=== PATIENT | female | born 1960 | race Caucasian/White ===

== ENCOUNTER 2017-02-18 18:20 | Emergency (ER) | payer MEDICARE ==
[~2017-02-18] VITALS: Ht 157.5 cm; Wt 80.5 kg
[~2017-02-18 18:20] MED LIST: ACET-1890 PO; BUPR-97 PO; CALC1TAB2 PO; ERGO400C PO; FLUT16SP2 NS; HYDR25TA4 PO; OMPR20CCR PO; OXYB10TA6 PO; SIMV40TA5 PO
[2017-02-18 18:28] VITALS: BP 149/73; PULSE 85; RESP 16; O2SAT 100
--- NOTE | 2017-02-18 19:25 | DRSVH ---
PROCEDURE: X-RAY RIGHT WRIST COMPLETE, MINIMUM THREE VIEWS ([id number]) INDICATIONS: Fall TECHNIQUE: 3 views of the wrist were acquired. COMPARISON: None. FINDINGS: Bones: There is a comminuted fracture of the distal radius. Fracture lucencies extend to the radioc arpal joint. Displaced fracture of the ulnar styloid process is noted. Scaphoid view: Unable to be performed due to a splint on the patient's arm at time of image acquisit ion. Soft tissues: No suspicious soft tissue calcifications. IMPRESSION: 1. Comminuted, intra-articular, distal radial fracture. 2. Ulnar styloid process fracture. Dictated by: Viktoriya Nazario MD, PhD on 02/18/2017 at 19:22 Approved by: Viktoriya Nazario MD, PhD on 02/18/2017 at 19:24
--- NOTE | 2017-02-18 21:14 | DRSVH ---
PROCEDURE: CT FACE WITHOUT CONTRAST ([id number]) INDICATIONS: fall, facial trauma TECHNIQUE: Noncontrast 1.5 mm thick axial images acquired from the mandible through the frontal sinuses, with co enoch and sagittal reformatting. For radiation dose reduction, the following was used: automated ex posure control. COMPARISON: None. FINDINGS: Image quality: Excellent. Bones and teeth: There is a displaced fracture of the right lateral orbit wall. Nondisplaced fractu re of the right zygomatic arch is noted. Sinus lombardo show no fracture or deformity. Nasal bones and septum are intact. Visualized portions of the mandible demonstrate no fractures or subluxation. Pt erygoid plates are intact. Visualized portions of the skull base and auditory canals are intact. Sinuses: Mild mucosal thickening noted in the maxillary sinuses, the right sphenoid sinus in the lef t frontal sinus. Mastoid air cells are aerated. Soft tissues: Right periorbital soft tissues show swelling noted. No enlarged lymph nodes. No soft tissue lacerations or debris. Vascular: Visualized vascular structures appear normal in the absence of contrast. Bony vascular fo ramina and canals are intact. IMPRESSION: 1. Displaced right lateral orbital wall fracture. 2. Displaced bone fragment associated with right lateral orbit wall fracture impinges on the right l ateral rectus muscle. Please correlate with clinical findings to exclude muscle entrapment. 3. Nondisplaced right zygomatic arch fracture. Dictated by: Viktoriya Nazario MD, PhD on 02/18/2017 at 21:04 Approved by: Viktoriya Nazario MD, PhD on 02/18/2017 at 21:12
--- NOTE | 2017-02-18 21:18 | DRSVH ---
PROCEDURE: CT BRAIN WITHOUT CONTRAST ([id number]) INDICATIONS: fall, facial trauma TECHNIQUE: Noncontrast 4.5 mm thick angled axial sections acquired from the foramen magnum to the vertex, with c oronal reformats. COMPARISON: [facility], MR, IAC'S W&W/O CONTRAST, 01/17/2013, 8:24. FINDINGS: Image quality: Excellent. CSF spaces: Basal cisterns are patent. No extra-axial fluid collections. The ventricles are symmet toño in size and shape. Brain: No intracranial bleeds or masses. Surgical resection cavity in the right frontal lobe is stab le compared to prior MRI. Chronic lacunar infarcts involving the right basal ganglia is noted. There is cerebral volume loss for age, with resultant ventricular and sulcal prominence. There are perive ntricular and deep white matter chronic small vessel ischemic changes. There is intracranial interna l carotid artery atherosclerosis. Skull and face: Right lateral orbit wall fracture and nondisplaced right zygomatic arch fracture are noted. Postsurgical changes compatible with right frontal-temporal craniotomy noted. Sinuses: Visualized sinuses and mastoids are clear. IMPRESSION: 1. No acute intracranial disease process. 2. Right lateral orbit wall and right zygomatic arch fractures. Dictated by: Viktoriya Nazario MD, PhD on 02/18/2017 at 21:12 Approved by: Viktoriya Nazario MD, PhD on 02/18/2017 at 21:17
--- NOTE | 2017-02-18 21:22 | DRSVH ---
PROCEDURE: CT CERVICAL SPINE WITHOUT CONTRAST ([id number]) INDICATIONS: fall, facial trauma TECHNIQUE: Noncontrast 3 mm thick sections acquired from the skull base to the T4 level. Sagittal and coronal r eformats were then constructed. For radiation dose reduction, the following was used: automated exp osure control, adjustment of mA and/or kV according to patient size. COMPARISON: None. FINDINGS: Image quality: Excellent. Bones: No fractures or dislocations. Visualized superior ribs are intact. Multilevel degenerative c hanges are noted Soft tissues: Prevertebral soft tissues are normal in thickness. No paravertebral hematomas. No ap ical pneumothoraces. Atherosclerotic calcifications noted. IMPRESSION: No fracture. No acute osseous lesion. If there are persistent symptoms or continued clini alis suspicion for pathology, then MRI should be considered for further evaluation. Dictated by: Viktoriya Nazario MD, PhD on 02/18/2017 at 21:17 Approved by: Viktoriya Nazario MD, PhD on 02/18/2017 at 21:21
[2017-02-18] MEDS ORDERED: HYDROmorphone 1 mg/mL Inj IVPUSH ONE (22:05)
[2017-02-18] MEDS ORDERED: Ondansetron 2 mg/mL 2 mL Inj ONE (22:15)
[2017-02-18] MEDS ORDERED: 0.9% Sodium Chloride 1,000 ML IV ONE (22:52)
[2017-02-18] MEDS ORDERED: Ondansetron 2 mg/mL 2 mL Inj IVPUSH PRN (22:55)
--- NOTE | 2017-02-18 22:56 | ED.REPORT ---
HPI-General Illness Date of Service Feb 18, 2017 ED Provider: Yoseph Villagran MD A 56 year old, hard of hearing female with a previous history of metastasized breast cancer s/p resection, radiation and chemotherapy presents to the ED following a GLF that occurred at 1700 this evening. Patient was reportedly walking down a steep incline, tripped and fell onto her right wrist and hit the right side of her face. The patient rates her current pain as an 8/10 and describes the pain as an aching throb. Patient denies any lightheadedness or chest pain prior to the fall. Current associated symptoms include dental pain, right wrist pain, and facial pain. She denies any LOC, neck pain, visual disturbances/loss, chest pain, difficulty breathing, abdominal pain, nausea or vomiting, lightheadedness prior to the fall, or any other complaints at this time. Nursing Notes Stated Complaint: GROUND LEVEL FALL Chief Complaint: Multiple Trauma/Fall Nursing Notes Reviewed: Yes Allergies: Coded Allergies: epinephrine (Verified Allergy, Unknown, 02/18/17) Uncoded Allergies: EPINEPHRINE=SHAKING 2-3 AFTER DENTAL (Allergy, Unknown, 06/12/04) Epinephrine (Allergy, Unknown, 06/12/04) NKDA (Allergy, Unknown, 06/12/04) SEAFOOD (Allergy, Unknown, RASH, 12/14/05) Scheduled Acetaminophen (Tylenol) 325 Mg Tablet 500 MG PO DAILY Bupropion-Expunged Drug, Do Not Renew! (Bupropion XL-Expunged Drug, Do Not Renew !) 150 Mg Tab.sr.24h 150 MG PO DAILY Calcium Carbonate/Vitamin D3 (Caltrate-600 With Vit D Tab) 1 Each Tablet 1 EACH PO DAILY Ergocalciferol-Expunged Drug, Do Not Renew! (Vitamin D-Expunged Drug, Do Not Renew!) 400 Unit Capsule 1,000 UNIT PO DAILY Fluticasone Propionate (Flonase Nasal) 16 Gm [place].susp 2 SPRAYS NS DAILY Hydrochlorothiazide-Expunged, Do Not Renew! (Hydrochlorothiazide-Expunged, Do Not Renew!) 25 Mg Tablet 25 MG PO DAILY Omeprazole-Expunged Drug, Do Not Renew! (Omeprazole-Expunged Drug, Do Not Renew! ) 20 Mg Capsule.dr 20 MG PO DAILY Oxybutynin Chloride ER (Ditropan XL) 10 Mg Tab.er.24 10 MG PO DAILY Simvastatin-Expunged Drug, Choose New Med! (Simvastatin-Expunged Drug, Choose New Med!) 40 Mg Tablet 40 MG PO HS General Time Seen by MD: 22:00 Chief Complaint Other (GLF) Hx Obtained From: Patient Arrived By: Walk-in Sudden in Onset?: Yes Onset Occurred: 5 - 8 hours ago Symptom Duration: Since onset Location: : Face: Head: Nose: Wrist right Quality: Aching, Painful, Throbbing Radiation: : Does not radiate Severity: Current: Pain level 8 out of 10 Severity: Maximum: Pain level 8 out of 10 Associated with: Reports: Headache, Denies: Abdominal pain, Chest pain, Loss of consciousness, Nausea, Shortness of breath, Vomiting Pertinent Negative: Pt denies other symptoms Recent Healthcare: No recent doctor visit, No recent hospitalization Past Medical History Past Medical History R breast cancer s/p chemo, radiation and resection Hard of hearing Past Surgical History Right mastectomy with right axillary lymphadenectomy (2001) Right frontal lobe brain metastasis resection Smoking History Never Smoker Social History Other Social History: Good social support, , Local resident Ambulatory Status Independent Review of Systems Facial pain Full Review of Systems Constitutional: Denies: Fever, Weakness - generalized Eyes: Denies: Blurred bilateral, Visual loss bilateral Respiratory: Denies: Dyspnea on exertion, Shortness of breath Cardiovascular: Denies: Chest pain GI: Denies: Abdominal pain, Nausea, Vomiting Female: Denies: Pelvic pain Musculoskeletal: Denies: Back pain Endocrine: Denies: Weight loss Skin: Denies Rash Neurologic: Reports: Headache, Denies: Change LOC, Vision change Complete sys rev & neg: except as marked. Physical Exam General: Airway patent, GCS of 15 --- eyes (4), verbal (5), motor (6) HEENT: PERRL - Right eye normal with pupils 4-3 and briskly reactive - Left eye normal with pupils 4-3 and briskly reactive Extraocular movements intact. Wall of vision intact. Right sided periorbital ecchymosis No proptosis Midface tenderness to palpation on the right side 1 cm laceration to the right maxillary Left tympanic membrane normal, right tympanic membrane normal. No hemotympanum No nasal septal hematoma Neck: nontender, trachea midline, c-collar in place - removed following CT clearance Lungs: Clear to auscultation bilaterally, normal work of breathing Chest: Stable without tenderness, no crepitus Cardiac: Regular rate and rhythm. Cap refill <2 sec Abdomen: Normal, non-tender, non-distended. Back: No bruising, tenderness, or step-offs Rectal: Deferred Pelvis: Stable Skin: Warm and well perfused Extremities: Right upper extremity: Neurovascularly intact. Right wrist deformity present. Tenderness about the distal aspect of the right wrist. Compartments are soft. Good cap refill. SILT. Left upper extremity grossly normal, no deformity. Right lower extremity grossly normal, no deformity. Left lower extremity grossly normal, no deformity. Pulses: Palpable to bilateral upper and lower extremities Neuro: Motor and sensory exams grossly within normal limits; patient localizes to pain. GCS 15. Vital Signs Vital Signs Date Time Temp Pulse Resp B/P Pulse Ox O2 Delivery O2 Flow Rate FiO2 02/19/17 01:23 36.7 84 16 142/89 98 Room Air 02/18/17 18:28 36.6 85 16 149/73 100 Room Air Initial VS: Reviewed Interpretation & Diagnostics Lab Results Interpretation Result Diagram: 02/18/17220602/18/172206 Test 02/18/17 22:01 02/18/17 22:07 Urine Color Straw (YELLOW) Urine Appearance Clear (CLEAR,HAZY) Urine pH 7.0 (5.0-8.0) Urine Specific [place] 1.005 (1.003-1.035) Urine Protein Negativemg/dL (NEG,TRACE) Urine Glucose (UA) Negativemg/dL (NEGATIVE) Urine Ketones Negativemg/dL (NEGATIVE) Urine Occult Blood Negative (NEGATIVE) Urine Nitrite Negative (NEGATIVE) Urine Bilirubin Negative (NEGATIVE) Urine Urobilinogen Normalmg/dL (NORMAL) Urine Leukocyte Esterase Negative (NEGATIVE) Urine RBC 0-2/hpf (0-2) Urine WBC 0-5/hpf (0-5) Urine Epithelial Cells Few/hpf (NONE-MOD) Urine Crystals None seen (NONE SEEN) Urine Bacteria None/hpf (NONE-FEW) Urine Hyaline Casts None/lpf (NONE) Urine Granular Casts None seen (NONE SEEN) Urine Waxy Casts None seen (NONE SEEN) Urine Red Blood Cell Casts None seen (NONE SEEN) Urine White Blood Cell Casts None seen (NONE SEEN) Urine Mucus Present (None Seen) Urine Trichomonas None seen (NONE SEEN) Urine Yeast None (NONE SEEN) Urinalysis Comment None Hold Urine Received (Received) White Blood Count 10.8th/mm3 (3.8-10.1) Red Blood Count 4.70mil/mm3 (3.90-5.20) Hemoglobin 14.3g/dL (12.0-15.6) Hematocrit 40.9% (35.0-46.0) Mean Corpuscular Volume 87.0fL (81-100) Mean Corpuscular Hemoglobin 30.4pg (27.0-35.0) Mean Corpuscular Hemoglobin Concent 35.0% (32.0-37.0) Red Cell Distribution Width 13.4% (12.3-15.4) Platelet Count 169bil/L (150-400) Neutrophils (%) (Auto) 63.4% (40-74) Lymphocytes (%) (Auto) 26.0% (14-46) Monocytes (%) (Auto) 8.8% (4-12) Eosinophils (%) (Auto) 1.3% (0-5) Basophils (%) (Auto) 0.3% (0-3) Hold Purple Top Tube Received (Received) Prothrombin Time 10.3sec (8.1-12.5) Prothromb Time International Ratio 0.96ratio Hold Blue Top Tube Received (Received) Sodium Level 137mEq/L (134-144) Potassium Level 4.2mEq/L (3.5-5.2) Chloride Level 100mEq/L (97-108) Carbon Dioxide Level 23mmol/L (18-29) Blood Urea Nitrogen 13mg/dL (6-24) Creatinine 0.60mg/dL (0.57-1.00) Estimat Glomerular Filtration Rate 148mL/min (>59) Glucose Level 105mg/dL (60-99) Calcium Level 9.4mg/dL (8.5-10.1) Magnesium Level 2.1mg/dL (1.6-2.6) Total Bilirubin 0.3mg/dL (0.0-1.2) Aspartate Amino Transf (AST/SGOT) 23U/L (0-50) Alanine Aminotransferase (ALT/SGPT) 20U/L (0-32) Alkaline Phosphatase 98U/L (25-150) Troponin T 0.010ug/L (0.0-0.011) Total Protein 7.3g/dL (6.4-8.4) Albumin 4.3g/dL (3.4-5.0) Lipase 24U/L (13-60) Hold [place] Top Tube Received (Received) Alcohols < 10mg/dL (0-10) X-Ray Chest Interpretation Chest Xray Interpretation: IMPRESSION: Unable to identify clear fracture Interpretation / Wet Read by: Wet read ED physician X-Ray Interpretation Xray Interpretation: IMPRESSION: 1. Comminuted, intra-articular, distal radial fracture. 2. Ulnar styloid process fracture. Dictated by: Viktoriya Nazario MD, PhD on 02/18/2017 at 19:22 X-Ray Ordered: Wrist right Interpretation / Wet Read by: Interpret - Radiologist Xray Interpretation: IMPRESSION: No open pelvic fractures appreciated X-Ray Ordered: Pelvis Interpretation / Wet Read by: Wet read ED physician CT Head Interpretation IMPRESSION: 1. No acute intracranial disease process. 2. Right lateral orbit wall and right zygomatic arch fractures. Dictated by: Viktoriya Nazario MD, PhD on 02/18/2017 at 21:12 Study: Head CT no contrast Interpretation / Wet Read by: Interpret - Radiologist CT C-Spine Interpretation IMPRESSION: No fracture. No acute osseous lesion. If there are persistent symptoms or continued clinical suspicion for pathology, then MRI should be considered for further evaluation. Dictated by: Viktoriya Nazario MD, PhD on 02/18/2017 at 21:17 Study type: CT no contrast Interpretation / Wet Read by: Interpret - Radiologist Procedures Splint Application - Fx Mgt Time: 23:22 Procedure Performed by: ED physician, Display Card Writer Precise Anatomic Location: Right ddistal wrist Type of Immobilization: Sugar tong Definitive Fracture Care: Performed by nd Post-Procedure / Complications: Cap refill normal, Post splint vascular nl, Post splint neuro nl, Condition improved, Tolerated procedure well, Patient stable Splint Post-Application Eval Extremity Condition: Cap refill < 2 sec, Distal sensation intact, Distal motor Intact, No compartment syndrome Re-Eval/Medical Decision Med Decision/Clinical Course In summary, this patient presents to the ED as a trauma after being involved in a ground-level fall shortly prior to arrival. Primary survey did not reveal any immediate life threats. Secondary survey notable for right-sided periorbital ecchymosis without evidence of proptosis or entrapment of the extraocular muscles, right wrist deformity with intact neurovascular exam. Patient describes clear mechanical etiology for her fall. Chest x-ray and pelvis x-ray unremarkable. CT head and C-spine negative for acute injury. Given that she has no abdominal pain, abdominal tenderness, chest pain, chest wall tenderness, dyspnea, and had only a ground-level fall, no CT imaging of the patient's chest , abdomen, and pelvis was obtained. CT scans of the patient's face demonstrates a displaced, right lateral orbital wall fracture and a nondisplaced right zygomatic arch fracture; that does appear to be a displaced bone fragment associated with the right lateral orbital wall that impinges upon the right lateral rectus muscle, however this does not correlate with her exam, either initially here in the ED, nor upon reassessment. She has no diplopia, change in her vision, or limitation of her extraocular movements. No proptosis. X-rays of the patients right wrist demonstrates a comminuted, intra- articular distal radius fracture. Plain films of the patient's elbow do not appear to demonstrate fracture and she has no tenderness there. Sugar tong splint placed; neurovascular status intact after splint placement. Laboratory studies reviewed, no significant abnormalities that would affect care at this time. With the patient's small laceration to the right maxillary region, patient was started on antibiotics. Discussed the patient with our on-call surgeon and orthopedic surgeon; given that we do not have anyone to manage her facial trauma here, [facility] was contacted and the patient was discussed with the on-call facial trauma specialist Dr. Sherman. Plan for transfer to [facility] for further management and evaluation. Discussed at length with the patient, who was agreeable and had no further questions. Time of Eval: 23:12 Re-Evaluation/Progress Note: Patient is informed of her CT results and plan to consult surgery. Time of Eval: 00:18 Patient Status: Condition improved Re-Evaluation/Progress Note: Pain has improved. Upon reassessment, EMOI. Visual acuity is intact. She is informed of the plan to transfer. Consultation #1: Referral / Consult Name: Pravin Gresham MD Consulted With: Surgeon Call Returned at: 22:57 Inflated Pad Buffer: Will see patient, Agrees with eval, Agrees with plan Note: Recommends consulting [facility] Consultation #2: Call Returned at: 00:19 Inflated Pad Buffer: Agrees with eval, Agrees with plan Note: [facility]- Dr. Myra Currie Consultation #3: Consulted With: Surgeon Call Returned at: 00:47 Inflated Pad Buffer: Will see patient, Agrees with eval, Agrees with plan, Accepts admit Note: [facility]- Dr. Myra Currie Discussed treatment plan for the patient. Dr. Renteria accepts the admission. Counseled Regarding: Diagnosis, Lab results, Need for transfer Discharge & Departure Primary Impression: Facial trauma Encounter type: initial encounter Qualified Code: S09.93XA - Unspecified injury of face, initial encounter Additional Impressions: Fall from ground level Distal radial fracture Encounter type: initial encounter Fracture type: closed Fracture morphology : unspecified fracture morphology Laterality: right Qualified Code: S52.501A - Unspecified fracture of the lower end of right radius, initial encounter for closed fracture Fracture of ulnar styloid Encounter type: initial encounter Fracture type: closed Fracture alignment : nondisplaced Laterality: right Qualified Code: S52.614A - Nondisplaced fracture of right ulna styloid process, initial encounter for closed fracture Fracture of lateral wall of orbit Encounter type: initial encounter Fracture type: closed Qualified Code: S02.80XA - Fracture of other specified skull and facial bones, unspecified side , initial encounter for closed fracture Fracture of right zygomatic arch Encounter type: initial encounter Fracture type: closed Qualified Code: S02.40EA - Zygomatic fracture, right side, initial encounter for closed fracture Disposition: Transfer, Acute Care Facility ([facility]) Receiving Hospital: [facility] Dr. Myra Currie Transfer Accepted: Yes Transfer Accepted at: 00:50 Transfer Reason: Higher level of care, Trauma Spoke with: Specialty physician Patient Status: Stable Discharge Condition All VS Reviewed: Yes Condition: Stable Referrals: Roberto Vickers DO (PCP) Crit Care Except Billable Proc Time Spent: 30-74 minutes Services Performed: Patient management by me, Time spent at bedside, Reviewing test results, Reviewing imaging, Discussing patient care, Documentation in record, Time with fam/surrogate Critical Care Notes: Please see MDM. Scribe Attestation Portions of this note were transcribed by Gifty Carter. I, Dr. Villagran personally performed the history, physical exam and medical decision-making; I reviewed and confirmed the accuracy of the information in the transcribed note. Signed by: Loki Roland, 02/19/17 0100. copies to: Roberto Vickers William B MD Feb 18, 2017 22:56 GIFTY CARTER Feb 18, 2017 23:05 personally performed the history, physical exam and medical decision-making; I reviewed and confirmed the accuracy of the information in the transcribed note. Signed by: Loki Roland, 02/19/17 0100. copies to: Roberto Vickers William B MD Feb 18, 2017 22:56 GIFTY CARTER Feb 18, 2017 23:05
[2017-02-18 23:03] LABS: BASOPHILS % (AUTO) 0.3 % (0-3); EOSINOPHILS % (AUTO) 1.3 % (0-5); MONOCYTES % (AUTO) 8.8 % (4-12); Mean Corpuscular Hemoglobin 30.4 pg (27.0-35.0); NEUTROPHILS % (AUTO) 63.4 % (40-74); Platelet Count 169 bil/L (150-400)
[2017-02-18 23:08] LABS: INR 0.96 ratio
[2017-02-18 23:21] LABS: APPEARANCE,URINE CLEAR (CLEAR,HAZY); COLOR,URINE STRAW (YELLOW); OCCULT BLOOD,URINE NEGATIVE (NEGATIVE); UROBILINOGEN,URINE NORMAL (NORMAL)
[2017-02-18] MEDS: HYDROmorphone 1 mg/mL Inj IVPUSH PRN (23:25)
[2017-02-18 23:27] LABS: Lipase 24 U/L (13-60); Magnesium 2.1 mg/dL (1.6-2.6)
[2017-02-19 01:23] VITALS: BP 142/89; PULSE 84; RESP 16; O2SAT 98
--- NOTE | 2017-02-19 01:28 | DRSVH ---
PROCEDURE: X-RAY CHEST ONE VIEW, PORTABLE ([id number]) INDICATIONS: trauma, fall TECHNIQUE: One view of the chest was acquired. COMPARISON: None. FINDINGS: Surgical changes and devices: None. Lungs and pleura: No pleural effusions or pneumothorax. Lungs are clear. Mediastinum: Mediastinal contours appear normal. Heart size is normal. Bones and chest wall: No suspicious bony lesions. Overlying soft tissues appear unremarkable. IMPRESSION: No acute cardiopulmonary disease process. Dictated by: Viktoriya Nazario MD, PhD on 02/19/2017 at 1:11 Approved by: Viktoriya Nazario MD, PhD on 02/19/2017 at 1:27
[2017-02-19] MEDS: HYDROmorphone 1 mg/mL Inj IVPUSH PRN (02:13)
[2017-02-19] MEDS ORDERED: CeFAZolin 2 Gm/50 mL D5W IV Premix IV ONE (02:15)
--- NOTE | 2017-02-19 11:19 | DRSVH ---
PROCEDURE: X-RAY RIGHT ELBOW COMPLETE, MINIMUM THREE VIEWS ([id number]) INDICATIONS: Right elbow pain, wrist fracture TECHNIQUE: 4 views of the elbow were acquired. COMPARISON: [facility], CR, XR WRIST 3VW RT, 02/18/2017, 18:49. FINDINGS: Bones: No definitive fractures or dislocations. Cortical lucency in the lateral aspect of the dista l humerus may be caused by artifact or less likely, nondisplaced fracture.. No suspicious bony lesion s. Soft tissues: No elbow joint effusion. No suspicious soft tissue calcifications. IMPRESSION: No definitive fracture or dislocation. If clinical symptoms persist or clinical suspicio n for pathology is high, a repeat examination in 7-10 days, or advanced imaging such as CT or MRI is suggested for further evaluation. Dictated by: Venkta Barnes M.D. on 02/19/2017 at 11:14 Approved by: Venkat Barnes M.D. on 02/19/2017 at 11:17
--- NOTE | 2017-02-19 11:30 | DRSVH ---
PROCEDURE: X-RAY PELVIS, ONE OR TWO VIEWS ([id number]) INDICATIONS: trauma, fall TECHNIQUE: 1 view(s) of the pelvis acquired. COMPARISON: None. FINDINGS: Bones: No fractures or dislocations. No suspicious bony lesions. Soft tissues: Visualized bowel gas pattern is normal. No suspicious soft tissue calcifications. IMPRESSION: No fracture. Dictated by: Venkat Barnes M.D. on 02/19/2017 at 11:27 Approved by: Venkat Barnes M.D. on 02/19/2017 at 11:27
== END 2017-02-19 03:22 | disposition short-term general hospital (02) ==
LOC: SED 18:20
DX: S02.40EA Zygomatic fracture, right side, initial encounter for closed fracture (principal); S02.80XA Fracture of other specified skull and facial bones, unspecified side, initial encounter for closed fracture; S52.591A Other fractures of lower end of right radius, initial encounter for closed fracture; S52.614A Nondisplaced fracture of right ulna styloid process, initial encounter for closed fracture; W01.10XA Fall on same level from slipping, tripping and stumbling with subsequent striking against unspecified object, initial encounter; Y92.89 Other specified places as the place of occurrence of the external cause; Y93.01 Activity, walking, marching and hiking; Y99.8 Other external cause status; R40.2410 Glasgow coma scale score 13-15, unspecified time; H91.90 Unspecified hearing loss, unspecified ear; Z85.3 Personal history of malignant neoplasm of breast; Z85.841 Personal history of malignant neoplasm of brain; Z90.11 Acquired absence of right breast and nipple; Z92.21 Personal history of antineoplastic chemotherapy; Z88.8 Allergy status to other drugs, medicaments and biological substances
CPT/HCPCS: 29125; 36415; 70450; 70486; 71010; 72125; 72170; 73080; 73110; 80053; 81001; 83690; 83735; 84484; 85025; 85610; 96361; 96365; 96375; 96376; 99285; G0480; J0690; J1170; J7030